=== PATIENT | female | born 1960 | race Caucasian/White ===

== ENCOUNTER 2019-12-12 07:59 | Outpatient (CLI) | payer OTHER, SELFPAY ==
--- NOTE | ~2019-12-12 | MM_ITS ---
EXAMINATION: MM scrn mariana implant BI w elisa HISTORY: Screening mammogram TECHNIQUE: Craniocaudal and mediolateral oblique 3-D tomosynthesis images with implant displacement a nd synthetic 2-D images were generated. Craniocaudal and mediolateral oblique views of the breasts wi thout implant displacement were obtained using full field digital mammography. CAD analysis was submi tted and interpreted. COMPARISON: Comparison to multiple prior studies sequentially, with oldest reviewed study dated 01/07. BREAST PARENCHYMAL COMPOSITION: There are scattered areas of fibroglandular density. FINDINGS: There is no evidence of suspicious mass, calcification, or architectural distortion to sugg est malignancy in either breast. There has been no suspicious interval change. IMPRESSION: 1. No mammographic evidence of malignancy. 2. Recommend routine screening mammography in one year. BI-RADS Category 1: Negative Reviewed, dictated and finalized at location A. 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
== END 2019-12-12 08:00 | disposition home or self-care (01) ==
LOC: ANHIMG 08:03
PROVIDERS: PCP Family Medicine; Visit Provider Obstetrics & Gynecology
DX: Z12.31 Encounter for screening mammogram for malignant neoplasm of breast (principal)
CPT/HCPCS: 77063; 77067

== ENCOUNTER 2019-12-17 11:33 | Outpatient (CLI) | payer OTHER, SELFPAY ==
[2019-12-19 23:41] LABS: Testosterone Total 13 ng/dL (2-45)
== END 2019-12-17 11:34 | disposition home or self-care (01) ==
LOC: ANHLAB 11:35
PROVIDERS: PCP Family Medicine; Visit Provider Obstetrics & Gynecology
DX: Z78.0 Asymptomatic menopausal state (principal)
CPT/HCPCS: 36415; 82306; 82672; 84403

== ENCOUNTER → 2020-11-03 16:30 | Outpatient (CLI) | payer OTHER, SELFPAY ==
--- NOTE | ~2020-11-03 | XR_ITS ---
XR knee RT min 4V DATE: 11/03/2020 16:50 INDICATION: Right knee pain TECHNIQUE: Standing AP, PA and lateral views. [place] view. COMPARISON: None FINDINGS: No fracture or dislocation or joint effusion. There is mild loss of height of the medial compartment joint space and minimal periarticular spurring at the medial and patellofemoral compartments. No radiopaque intraarticular loose body or chondrocalcinosis. 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
== END ==
PROVIDERS: PCP Family Medicine; Visit Provider Physician Assistant
DX: M17.11 Unilateral primary osteoarthritis, right knee (principal)
CPT/HCPCS: 73564

== ENCOUNTER 2020-11-03 17:04 | Outpatient (CLI) | payer OTHER, SELFPAY | END 2020-11-03 17:05 | disposition home or self-care (01) | LOC: ANHLAB 17:07 | PROVIDERS: PCP Family Medicine; Visit Provider Physician Assistant | DX: Z20.822 Contact with and (suspected) exposure to COVID-19 (principal); Z86.16 Personal history of COVID-19 | CPT/HCPCS: 36415; 86413 ==

== ENCOUNTER 2021-09-02 16:50 | Outpatient (CLI) | payer OTHER, SELFPAY ==
[2021-09-02 17:10] LABS: Appearance Urine Slightly Cloudy (Clear); Bilirubin Urine Negative (Negative); Blood Urine 2+ (Negative); Glucose Urine UA Negative (Negative); Ketones Urine Negative (Negative); Leukocyte Esterase Ur 3+ LEU/UL (Negative); Nitrate Urine Positive (Negative); Protein Urine Negative (Negative); Specific Grav Ur 1.015 (1.001-1.035); Urobilinogen Urine 0.2 mg/dL (<2.0)
[2021-09-02 17:12] LABS: Add Urine Microscopic? YES; Color Urine Light Yellow (Yellow)
[2021-09-02 17:15] LABS: Mucus Urine Rare /lpf; Squamous Epithelial Cell Urine Rare /hpf (Few); WBC Urine >75 /hpf
== END 2021-09-02 16:51 | disposition home or self-care (01) ==
PROVIDERS: PCP Family Medicine; Visit Provider Physician Assistant
DX: N39.0 Urinary tract infection, site not specified (principal)
CPT/HCPCS: 81001; 87077; 87086; 87186

== ENCOUNTER 2021-09-17 15:29 | Outpatient (CLI) | payer OTHER, SELFPAY ==
[2021-09-17 18:57] LABS: Appearance Urine Cloudy (Clear); Bilirubin Urine Negative (Negative); Blood Urine 2+ (Negative); Color Urine Yellow (Yellow); Glucose Urine UA Negative (Negative); Ketones Urine Negative (Negative); Leukocyte Esterase Ur 2+ LEU/UL (Negative); Nitrate Urine Negative (Negative); Protein Urine Negative (Negative); Urobilinogen Urine 0.2 mg/dL (<2.0)
[2021-09-17 19:09] LABS: Bacteria Urine Trace /hpf; Squamous Epithelial Cell Urine Rare /hpf (Few); WBC Clumps Urine Present /HPF; WBC Urine >75 /hpf
[2021-09-17 19:15] LABS: Add Urine Microscopic? YES
== END 2021-09-17 15:30 | disposition home or self-care (01) ==
LOC: ANHGOSHLAB 15:32
PROVIDERS: PCP Family Medicine; Visit Provider Physician Assistant
DX: N39.0 Urinary tract infection, site not specified (principal)
CPT/HCPCS: 81001; 87077; 87086; 87186

== ENCOUNTER 2021-09-24 09:03 | Outpatient (CLI) | payer OTHER, SELFPAY ==
[2021-09-24 20:17] LABS: Add Urine Microscopic? NO; Appearance Urine Clear (Clear); Bilirubin Urine Negative (Negative); Blood Urine Negative (Negative); Color Urine Yellow (Yellow); Glucose Urine UA Negative (Negative); Ketones Urine Negative (Negative); Leukocyte Esterase Ur Negative LEU/UL (Negative); Nitrate Urine Negative (Negative); Protein Urine Negative (Negative); Urobilinogen Urine 0.2 mg/dL (<2.0); pH Urine 6.5 (5.0-9.0)
== END 2021-09-24 09:04 | disposition home or self-care (01) ==
LOC: ANHGOSHLAB 09:05
PROVIDERS: PCP Family Medicine; Visit Provider Physician Assistant
DX: N39.0 Urinary tract infection, site not specified (principal)
CPT/HCPCS: 81003

== ENCOUNTER 2022-03-15 08:44 | Outpatient (CLI) | payer OTHER, SELFPAY ==
[2022-03-15 21:07] LABS: Vitamin D 25 Hydroxy 45.7 ng/mL
[2022-03-15 21:32] LABS: Alanine Aminotransferase 34 U/L (6-35); Albumin Level 4.6 g/dL (3.5-5.1); Alkaline Phosphatase 56 U/L (38-126); Anion Gap 6 mmol/L (8-16); Aspartate Amino Transferase 44 U/L (14-36); Bilirubin,Total 0.5 mg/dL (0.2-1.3); Blood Urea Nitrogen 24 mg/dL (7-17); Calcium 9.5 mg/dL (8.4-10.2); Carbon Dioxide 29 mmol/L (22-30); Chloride 101 mmol/L (98-107); Cholesterol 224 mg/dL (0-200); Estimated Glomerular Filt Rate 57; Glucose 74 mg/dL (65-110); HDL Direct 58 mg/dL; Potassium 4.8 mmol/L (3.4-5.0); Sodium 136 mmol/L (137-145); Triglycerides 58 mg/dL (<150)
[2022-03-15 21:45] LABS: LDL Cholesterol Direct 119 mg/dL
== END 2022-03-15 08:45 | disposition home or self-care (01) ==
LOC: ANHGOSHLAB 08:46
PROVIDERS: PCP Family Medicine; Visit Provider Family Medicine
DX: R53.83 Other fatigue (principal)
CPT/HCPCS: 36415; 80053; 80061; 82306; 84443

== ENCOUNTER 2023-03-01 16:07 | Outpatient (CLI) | payer OTHER, SELFPAY ==
[2023-03-01 20:20] LABS: Vitamin D 25 Hydroxy 59.7 ng/mL
[2023-03-01 20:24] LABS: Hepatitis B Surface Antigen Negative (Negative)
[2023-03-01 20:30] LABS: HAV RESULT Negative (Negative); Hepatitis B Core IgM Result Negative (Negative)
[2023-03-01 20:37] LABS: Alanine Aminotransferase 23 U/L (6-35); Albumin Level 4.6 g/dL (3.5-5.1); Alkaline Phosphatase 49 U/L (38-126); Anion Gap 4 mmol/L (8-16); Aspartate Amino Transferase 37 U/L (14-36); Bilirubin,Total 0.5 mg/dL (0.2-1.3); Blood Urea Nitrogen 16 mg/dL (7-17); Calcium 9.4 mg/dL (8.4-10.2); Carbon Dioxide 29 mmol/L (22-30); Chloride 103 mmol/L (98-107); Estimated Glomerular Filt Rate 42; Glucose 98 mg/dL (65-110); Potassium 4.2 mmol/L (3.4-5.0); Sodium 136 mmol/L (137-145)
[2023-03-01 20:42] LABS: Hepatitis C Virus Antibody Negative (Negative)
[2023-03-04 05:50] LABS: Thyroid Peroxidase Antibodies <1 IU/mL (<9)
== END 2023-03-01 16:08 | disposition home or self-care (01) ==
LOC: ANHGOSHLAB 16:08
PROVIDERS: PCP Family Medicine; Visit Provider Family Medicine
DX: R74.01 Elevation of levels of liver transaminase levels (principal); E05.90 Thyrotoxicosis, unspecified without thyrotoxic crisis or storm
CPT/HCPCS: 36415; 80053; 80074; 82306; 84443; 86376

== ENCOUNTER → 2023-03-04 14:25 | Outpatient (CLI) | payer OTHER, SELFPAY ==
--- NOTE | ~2023-03-04 | US_ITS ---
US renal BI 03/04/2023 14:41 Procedure: Realtime transabdominal ultrasound of the kidneys and bladder. Indication: Abnormal renal labs Comparison: No prior studies for comparison. Findings: Renal echotexture is normal bilaterally without hydronephrosis, contour deforming mass or r enal calculus. The right kidney measures 9.5 cm and left kidney measures 8.8 cm. Bladder within norm al limits. Impression: 1: Unremarkable renal ultrasound. No stones, masses or hydronephrosis. Reviewed, dictated and finalized at location B. GER ESTATE Impression: 1: Unremarkable renal ultrasound. No stones, masses or hydronephrosis.
== END ==
PROVIDERS: PCP Family Medicine; Visit Provider Family Medicine
DX: R79.89 Other specified abnormal findings of blood chemistry (principal)
CPT/HCPCS: 76775

== ENCOUNTER → 2023-04-01 10:12 | Outpatient (CLI) | payer OTHER, SELFPAY ==
--- NOTE | ~2023-04-01 | MM_ITS ---
EXAMINATION: MM scrn mariana implant BI w elisa HISTORY: Screening mammogram TECHNIQUE: Craniocaudal and mediolateral oblique 3-D tomosynthesis images with implant displacement a nd synthetic 2-D images were generated. Craniocaudal and mediolateral oblique views of the breasts wi thout implant displacement were obtained using full field digital mammography. CAD analysis was submi tted and interpreted. COMPARISON: No prior mammogram is available for comparison at this institution. BREAST PARENCHYMAL COMPOSITION: There are scattered areas of fibroglandular density. FINDINGS: There is no evidence of suspicious mass, calcification, or architectural distortion to sugg est malignancy in either breast. There has been no suspicious interval change. IMPRESSION: 1. No mammographic evidence of malignancy. 2. Recommend routine screening mammography in one year. BI-RADS Category 1: Negative Reviewed, dictated and finalized at location A. 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
== END ==
PROVIDERS: PCP Family Medicine; Visit Provider Obstetrics & Gynecology
DX: Z12.31 Encounter for screening mammogram for malignant neoplasm of breast (principal)
CPT/HCPCS: 77063; 77067

== ENCOUNTER 2023-08-02 11:30 | Emergency (ER) | payer OTHER, SELFPAY ==
[2023-08-02 11:38] VITALS: BP 146/79; PULSE 60; RESP 20; TEMP 36.6; O2SAT 99
--- NOTE | 2023-08-02 11:39 | ED.SKABFB ---
HPI - Skin/Abscess/Foreign Bdy General Chief complaint: Skin/Abscess/Foreign Body Stated complaint: SPOT UNDER R ARM Time Seen by Provider: 08/02/23 11:40 Source: patient Mode of arrival: ambulatory Limitations: no limitations History of Present Illness HPI narrative: 62 y/o female presented for c/o skin lesion to right underarm over the past few days. Denies drainage, itching or pain. Applying a bandaid to the site because she feels a burning sensation when the skin rubs. Applying hydrocortisone to the site. 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 No other skin concerns. Related Data Home Medications Medication Instructions Recorded Confirmed 5-hydroxytryptophan (5-HTP) 50 mg 50 mg PO BID 03/12/22 05/26/23 capsule Bacillus coagulans-inulin 1 cap PO 03/12/22 05/26/23 billion cell-250 mg capsule (Probiotic with Prebiotic) cranberry extract 500 mg capsule 500 mg PO BID 03/12/22 05/26/23 calcium carbonate (Calcium 600) 600 mg PO DAILY 05/26/23 05/26/23 Allergies Allergy/AdvReac Type Severity Reaction Status Date / Time No Known Allergies Allergy Verified 05/26/23 10:17 Review of Systems Review of Systems: CONSTITUTIONAL: Denies body aches, fever, chills, or sweats. EYES: Denies visual changes, redness, or discharge. ENT: Denies rhinorrhea, congestion CARDIOVASCULAR: Denies chest pain, palpitations, or edema. RESPIRATORY: Denies cough or dyspnea. GASTROINTESTINAL: Denies abdominal pain, nausea, vomiting, or diarrhea. SKIN: per hpi MUSCULOSKELETAL: Denies back pain, joint pain, or myalgia. NEUROLOGIC: Denies headache, numbness, tingling, or weakness. [facility] Past Medical History Medical History Cataract COVID-19 (~07/08/20) History of vaginal delivery x 2 Surgical History Surgical History H/O LEEP History of breast augmentation Hx of bilateral cataract extraction Family History Family History Mother Family history of chronic obstructive pulmonary disease Social History Social History Smoking status: Never smoker Second hand tobacco smoke exposure: No Alcohol intake: current Drinks per week: 1 Substance use: never Substance use type: does not use Do You Feel Safe in your Home?: Yes Lack of Transportation: No Lack of Food: Never True Current Housing: I Have Housing Concerned About Future Housing: No Difficulty Paying Gas/Electric Bills: No Difficulty Paying for Meds: No Currently Unemployed: No Education: Master's Degree or Higher Difficulty w/ Childcare or Family Care: No Occupation/Education: occupation Gender identity (if verbalized by the patient): Female Comments At time of signature, I have reviewed and agree with nursing past medical, surgical, social and family history unless otherwise noted. Please see nursing chart for further information. There is no relevant family history pertinent to the presenting complaint Exam Narrative: GENERAL: Well-appearing ENT: Mucous membranes moist. Oropharynx without edema, erythema or lesions. NECK: Supple. No lymphadenopathy CHEST: Clear to auscultation. HEART: Regular rate and rhythm. SKIN: Warm, dry. Right axilla with 1cm diameter skin lesion, flat, nontender, no fluctuance; reddened wound bed, scant yellow drainage noted to bandaid. NEURO: Alert and oriented x3. Course Course Emergency Course: Patient is aware of diagnosis, understands and agrees to treatment plan. Anticipatory guidance given. Patient agrees to follow-up as directed and is aware of reasons to seek care at the emergency department. Portions of this record may have been created with voice recognition software Level of Care: Express Care Visit Vital Signs Vital signs: Vital Signs Temperature 97.9 F 08/02/23
== END 2023-08-02 11:57 | disposition home or self-care (01) ==
PROVIDERS: Emergency Provider Nurse Practitioner Family; PCP Family Medicine
DX: L02.411 Cutaneous abscess of right axilla (principal); Z86.16 Personal history of COVID-19
CPT/HCPCS: 99213; G0463

== ENCOUNTER 2024-05-01 08:07 | Outpatient (CLI) | payer OTHER, SELFPAY ==
--- NOTE | ~2024-05-01 | MM_ITS ---
EXAMINATION: MM scrn mariana implant BI w elisa HISTORY: Screening TECHNIQUE: Craniocaudal and mediolateral oblique 3-D tomosynthesis images were obtained and synthetic 2-D images were generated. CAD analysis was submitted and interpreted. COMPARISON: 04/01/2023 BREAST PARENCHYMAL COMPOSITION: There are scattered areas of fibroglandular density. FINDINGS: Punctate calcifications within the retroareolar position of the left breast, stable and srini ign in appearance. Stable parenchymal pattern without suspicious microcalcifications, architectural distortion, discrete masses or significant asymmetry. IMPRESSION: 1. No mammographic evidence of malignancy. 2. Recommend routine screening mammography in one year. BI-RADS Category 2: Benign finding(s). Reviewed, dictated and finalized at location A.
--- OUTSIDE RECORDS SUMMARY | 2024-05-01 08:27 | XMS_ITS | Clinical Summary ---
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 Gender Identity Not on file Sexual Orientation Not on file Last Filed Vital Signs Vital Sign Reading Time Taken Comments Blood Pressure 137/70 02/01/2021 9:40 AM METALWORKING SPECIALIST Pulse 71 02/01/2021 9:40 AM METALWORKING SPECIALIST Temperature 36.9 C (98.4 F) 02/01/2021 9:40 AM METALWORKING SPECIALIST Respiratory Rate 20 02/01/2021 9:40 AM METALWORKING SPECIALIST Oxygen Saturation 100% 02/01/2021 9:40 AM METALWORKING SPECIALIST Inhaled Oxygen Concentration - - Weight 78.9 kg (174 lb) 02/01/2021 9:40 AM METALWORKING SPECIALIST Height 170.2 cm (5' 7 ) 02/01/2021 9:40 AM METALWORKING SPECIALIST Body Mass Index 27.25 02/01/2021 9:40 AM METALWORKING SPECIALIST Plan of Treatment Health Maintenance Due Date Last Done Comments Cervical Cancer Screening Pa p Smear (Age 30 to 64) Every 3 Years 1962 Colorectal Cancer Screening Colonoscopy (10 Years) 1962 Annual Physical 1965 Hepatitis C 1980 Cervical Cancer Screening Pa p with HPV Testing (Age 30 to 64) Every 5 Years 1992 Cervical Cancer Screening with HPV 1992 Mammogram Screening 2002 Zoster Vaccines (1 of 2) 2012 COVID-19 Vaccine (1 - 2024-2 5 season) 2023 Influenza Adult (#1) 2023 01/11/2019 DTaP, Tdap and Td Vaccines ( 2 - Td or Tdap) 05/01/2030 05/01/2020 RSV Immunization or 60+ Years (1 - 1-dose 75+ series) 2037 Meningococcal B Vaccine Aged Out No l onger eligible based on patient's age to complete this topic Meningococcal Vaccine Aged Out No prabhjot saravanan eligible based on patient's age to complete this topic Pneumococcal Vaccine: Pediat rics (0 to 5 Years) and At-Risk Patients (6 to 64 Years) Aged Out No longer eligi ble based on patient's age to complete this topic RSV Immunizations Under 20 Months Aged Out No longer eligible based on patient's age to complete this topic Insurance [employer] Care Teams Counter Checker Relationship Specialty Start Date End Date Kavon Singh MD PCP - General FAMILY PRACTICE 02/01/21
== END 2024-05-01 08:08 | disposition home or self-care (01) ==
LOC: CHSIMG 08:12
PROVIDERS: PCP Family Medicine; Visit Provider Obstetrics & Gynecology
DX: Z12.31 Encounter for screening mammogram for malignant neoplasm of breast (principal)
CPT/HCPCS: 77063; 77067

== ENCOUNTER 2024-07-26 07:42 | Outpatient (CLI) | payer OTHER, SELFPAY ==
[2024-07-26 08:43] LABS: Hematocrit 42.5 % (37.0-47.0); Hemoglobin 13.6 g/dL (12.0-15.0); Mean Corpuscular Hemoglobin 29.7 pg (26-34); Mean Corpuscular Volume 92.8 fl (80-100); Mean Platelet Volume 9.6 fl (7.4-10.4); Platelet Count Result 197 k/mm3 (150-375); Red Blood Count 4.58 M/mm3 (4.2-5.4); Red Cell Distribution Width 12.2 % (11.5-14.5); White Blood Count 4.5 K/mm3 (4.5-10.0)
[2024-07-26 08:57] LABS: Alanine Aminotransferase 18 U/L (6-35); Albumin Level 4.6 g/dL (3.5-5.1); Alkaline Phosphatase 38 U/L (38-126); Anion Gap 6 mmol/L (4-12); Aspartate Amino Transferase 29 U/L (14-36); Bilirubin,Total 0.4 mg/dL (0.2-1.3); Blood Urea Nitrogen 19 mg/dL (7-17); Calcium 9.7 mg/dL (8.4-10.2); Carbon Dioxide 29 mmol/L (22-30); Chloride 103 mmol/L (98-107); Estimated Glomerular Filt Rate 54; Glucose 88 mg/dL (65-110); Potassium 4.3 mmol/L (3.4-5.0); Sodium 138 mmol/L (137-145); Total Protein 7.3 g/dL (6.3-8.2)
[2024-07-26 09:21] LABS: Hemoglobin A1C 5.2 % (<5.7)
[2024-07-26 09:23] LABS: Vitamin D 25 Hydroxy 54.9 ng/mL
[2024-07-31 00:19] LABS: Insulin Level Total. 5.6 uIU/mL
[2024-07-31 13:55] LABS: Testosterone Free 1.3 pg/mL (0.1-6.4); Testosterone Total 13 ng/dL (2-45)
== END 2024-07-26 07:43 | disposition home or self-care (01) ==
LOC: ANHLAB 07:45
PROVIDERS: PCP Family Medicine; Referring Provider Family Medicine; Visit Provider Obstetrics & Gynecology
DX: N95.1 Menopausal and female climacteric states (principal)
CPT/HCPCS: 36415; 80053; 82306; 82672; 83036; 83525; 84402; 84403; 84443; 85027

== ENCOUNTER 2024-10-12 02:49 | Day surgery (SDC) | payer OTHER, SELFPAY ==
[2024-10-03 14:46] VITALS: BMI 27.2
--- NOTE | 2024-10-03 14:55 | PC.NURSE ---
Report to the Outpatient Waiting Room, entrance under the green pavilion located off [facility], at time _0830_ on date _[id number]_. Planned Procedure Time: _1030_.? Time changes happen often and if your time is changed the preop area will call you the afternoon before. - You and your visitor will be asked to self-screen and do not enter if you have any COVID symptoms. Please call surgeon if you need to reschedule. - A mask is optional within the hospital at this time. Patients may have clear liquids (water, carbonated beverages, clear teas, apple juice) until 3 hours prior to surgery with a maximum of 20 ounces. - No food from midnight until time of surgery and no smoking, or chewing tobacco (or any form of nicotine). No chewing gum, candy or mints. Take only the following medications with a SIP of water on the morning of surgery: ___Escitalopram____ DO NOT STOP ANY OF YOUR OTHER PRESCRIPTION MEDICATIONS PRIOR TO SURGERY EXCEPT THE FOLLOWING Hold all vitamins and supplements for 3 days per anesthesiologist. Medications to discontinue per physician Date to take last pndj___[phone]____ Please no make-up, nail moroccan, hairspray, perfume, deodorant, or body powder the day of surgery.? No jewelry (including any body piercings) or valuables the day of surgery, leave them at home.? Please take a shower or bath the night before, or the morning of, surgery with an antibacterial soap.? Wear comfortable, loose fitting clothing.? - Jewelry must be removed prior to entering the operating room.? Rings and piercings that are not removed may be cut off. - The hospital will not accept responsibility for valuables.? - Please leave all valuables, including medications, at home the day of surgery. If you are going home after surgery, a licensed otr van cdl truck driver must drive you home.? - NO public transportation without another adult if you receive anesthesia. - We recommend that an adult stay with you for 24 hours following discharge. - We also recommend that you do not drive, make important decision, drink alcoholic beverages, or take any drugs that were not prescribed by your health care provider for at least 24 hours after your discharge time. Follow any additional instructions given to you from your surgeon. Telephone instructions given to __Alisa___and asked if any additional questions and then verbalized understanding. Patient advised to call surgeon office or pre surgery nurse liaison [phone] if any additional questions.
--- NOTE | 2024-10-12 08:59 | WPDHPUPDATE1 ---
History and Physical Update Update Date/Time: 10/12/24 08:59 History and Physical has been reviewed, including an updated exam of the patient. There are NO changes in the patient's condition. Risks, benefits, and alternatives have been discussed and questions answered. Patient agrees to proceed with procedure.
[2024-10-12 09:00] VITALS: BP 127/82; PULSE 68; RESP 16; TEMP 36.4; O2SAT 100; BMI 28.0
[2024-10-12] MEDS: LACTATED RINGERS 1,000 ML 30 ML IV CONT (09:15)
[2024-10-12] MEDS: ACETAMINOPHEN 500 MG TABLET 1000 MG PO (09:20)
--- NOTE | 2024-10-12 09:57 | P.PNAN_ITS ---
Anes - Initial Pre Proc Eval Procedure: Operation Date: 10/12/24 10:30 Proposed Procedures p Cold Knife Cone Biopsy - Zac Rutherford MD Date/Time: 10/12/24 09:57 Surgeon: Zac Rutherford MD Pre Op Diagnosis: Hi-Grade Dysplasia Patient Data Age: 64 Gender: F Height: 1.7 m Weight: 81.4 kg Last Vital Signs Temp 97.5 F L 10/12/24 09:00 Pulse 68 10/12/24 09:00 Resp 16 10/12/24 09:00 BP 127/82 10/12/24 09:00 Pulse Ox 100 10/12/24 09:00 O2 Del Method Room Air 10/12/24 09:00 Allergies Allergy/AdvReac Type Severity Reaction Status Date / Time No Known Allergies Allergy Verified 10/12/24 09:21 Home Medications ?Medication ?Instructions ?Recorded ?Confirmed ?Type escitalopram oxalate 10 mg tablet 10 mg PO DAILY #90 t abs 01/13/24 10/03/24 Rx biotin 1,250 mcg-collagen 150 2 tablet PO DAILY 10/12/24 History mg-vit L-T-C-min-herbal 353 chew tablet calcium carbonate 1,500 mg PO DAILY 07/19/24 0 10/12/24 History metformin 1,000 mg tablet 2,000 mg PO DAILY 07/19/24 0 10/03/24 History Patient hx anesthesia problems: none Family hx anesthesia problems: none Results Review: All pre-operative results and documents have been reviewed as part of the pre- operative evaluation. [facility] Past Medical History Medical History Cataract COVID-19 (~07/08/20) History of vaginal delivery x 2 Surgical History Surgical History Hx of bilateral cataract extraction H/O LEEP History of breast augmentation Family History Family History Mother Family history of chronic obstructive pulmonary disease Breast cancer Social History Social History Years smoked: 3 Smoking status: Former smoker Second hand tobacco smoke exposure: No Smoking end date: 10/03/84 Alcohol intake: current Drinks per week: 1 Substance use: never Substance use type: does not use Do You Feel Safe in your Home?: Yes Lack of Transportation: No Lack of Food: Never True Current Housing: I Have Housing Concerned About Future Housing: No Difficulty Paying Gas/Electric Bills: No Difficulty Paying for Meds: No Currently Unemployed: No Education: Master's Degree or Higher Difficulty w/ Childcare or Family Care: No Living arrangements: with family Occupation/Education: occupation Gender identity (if verbalized by the patient): Female Spiritual care concerns: No Anes - Eval Final PreProcedure Day of Procedure 10/12/24 09:57 Patient weight: normal Lungs: normal air movement Airway: Mallampati scale class II Neurological: alert and oriented Last oral intake: >/= 8 hours ASA classification: II Emergent: no Anesthetic plan: proceed Anesthesia type and monitoring: general GIVS and standard monitoring Results Review: All pre-operative results and documents have been reviewed as part of the pre- operative evaluation. Healthy overall, anxiety, remote hx of smoking. Informed Consent: The patient's anesthetic plan and its attendant risks and benefits were discussed with the patient/family/POA. Questions were solicited and answers provided to the satisfaction of the patient/family/POA.
[2024-10-12] MEDS: ceFAZolin 2 GM in SODIUM CHLORIDE 0.9% IV 50 ML 100 ML IVPB (10:15)
[2024-10-12 10:35] VITALS: BP 93/56; PULSE 61; RESP 18; O2SAT 96
--- NOTE | 2024-10-12 10:38 | W.PM.PROC2 ---
Procedure Note - Detailed Date of Procedure 10/12/24 Pre-op Diagnosis Hi-Grade Dysplasia Post-op Diagnosis Same Procedure Performed Loop electrosurgical excision procedure Surgeon Zac Rutherford MD Anesthesia MAC and Local Indications GRACE 2 on colposcopy biopsy. Findings Hypopigmentation at 6:00 a.m. and 12:00 p.m. with Lugol application. Description of Procedure The patient was taken to the OR where adequate IV sedation was administered. She was then prepped and draped in the usual sterile fashion and placed in the dorsal lithotomy position. A Graves speculum was placed in the vagina. Lugol?s solution was painted along the entire cervix and vaginal wall. Areas of non-uptake were noted to be around the entire squamocolumnar junction. 10 cc of lidocaine with epinephrine was injected at surgical site. The large loop electrode was used to remove the anterior or top portion of the cervix and a separate posterior specimen which included all of the hypopigmented area was excised and sent to pathology. The smallest loop electrode was used to obtain a top hat for excision of the endocervix. The bed of the excised cervical tissue along the cervix was cauterized using the roller ball. Hemostasis was noted. Monsel's solution placed at biopsy site. All instruments were removed from vagina at this point. The patient tolerated the procedure well without complication and was taken to the recovery room in stable condition. Estimated Blood Loss 5 Drains No Packing No Pathology Yes ( Anterior and posterior cervical LEEP and endocervical LEEP) Complications No immediate complications Condition Stable Disposition Same day [facility] Billing Surgery - Charge Forward: Surgery Billing
--- NOTE | 2024-10-12 10:39 | S_PTH ---
PATIENT: Shabana Armas LOC: [facility] U#:[id number] AGE/SX: 64/F ROOM: RE10/12/[address]: Zac Rutherford MD : 1960 BED: DIS: 10/12/2024 SPEC #: [id number] RECD: 10/12/24 11:24 STATUS: CAMMY REQ #: [id number] EVER: 10/12/24 10:[address]: Zac Rutherford DEPT: [facility] Surgical RECD BY: Fatimah Vinson ENTERED: 10/12/24 11:27 SP TYPE: Surgical OTHR DR: Kavon Singh MD Tissues: A - Leep/Cone B - Leep/Cone C - Leep/Cone Procedures: Hematoxylin and Eosin Stain Gross and Microscopic Level 5
[2024-10-12] MEDS: FERRIC SUBSULFATE 8 ML SOLUTION WITH APPLICATOR TOPICAL (10:40)
[2024-10-12 11:05] VITALS: BP 131/74; PULSE 57; RESP 18; O2SAT 96
[2024-10-12] MEDS: oxyCODONE HCL (*CRX) 5 MG TAB IR PO (11:33)
[2024-10-12 11:35] VITALS: BP 143/87; PULSE 55; RESP 18
== END 2024-10-12 12:02 | disposition home or self-care (01) ==
PROVIDERS: PCP Family Medicine; Visit Provider Obstetrics & Gynecology
PROC: 0UB97ZZ Excision of Uterus, Via Natural or Artificial Opening (ICD-10-PCS; CPT 57520; principal; 2024-10-12 10:30)
DX: N87.1 Moderate cervical dysplasia (principal); Z87.891 Personal history of nicotine dependence
CPT/HCPCS: 57522; 88307; J0690; A9270; J2003; J2004; J2250; J2405; J2704; J3010; J7120

== ENCOUNTER 2024-11-27 13:16 | Outpatient (CLI) | payer OTHER, SELFPAY | END 2024-11-27 13:17 | disposition home or self-care (01) | LOC: ANHGOSHLAB 13:17 | PROVIDERS: Visit Provider Obstetrics & Gynecology | DX: N39.0 Urinary tract infection, site not specified (principal) | CPT/HCPCS: 87086 ==